=== PATIENT | female | born 1980 | race Asian ===

== ENCOUNTER 2016-12-26 00:45 | Inpatient (IN) | payer SELFPAY ==
[~2016-12-26] VITALS: Ht 158 cm; Wt 78.5 kg
[2016-12-26 02:00] VITALS: BP 115/63
[2016-12-26] MEDS ORDERED: LACTATED RINGERS 1,000 ML IV SCH (02:13)
[2016-12-26] MEDS ORDERED: OXYTOCIN 10 UNITS/ML VIAL IM SCH (02:15)
[2016-12-26] MEDS ORDERED: LACTATED RINGERS 500 ML IV SCH (02:15)
[2016-12-26] MEDS ORDERED: OXYTOCIN 20 UNITS/LR PREMIX 1,000 ML IV SCH (02:15)
[2016-12-26] MEDS ORDERED: ROPIVACAINE 0.2%/NS PREMIX 250 ML EPI ONE (02:19)
[2016-12-26] MEDS ORDERED: AMPICILLIN 500 MG CAP PO SCH (03:30)
[2016-12-26] MEDS: IBUPROFEN 800 MG TAB PO PRN ×2 (04:07→19:54)
[2016-12-26] MEDS ORDERED: INFLUENZA VIRUS VACCINE QUAD 0.5 ML SYR IMVAC SCH (04:50)
[2016-12-26] MEDS ORDERED: OXYTOCIN 20 UNITS/LR PREMIX 1,000 ML IV ONE (05:14)
[2016-12-26] MEDS ORDERED: OXYTOCIN 10 UNITS/ML VIAL ONE (05:14)
--- NOTE | 2016-12-26 08:14 | NUR ---
PATIENT HAS BEEN SCREENED AND CATEGORIZED LOW NUTRITION RISK. PATIENT WILL BE SEEN WITHIN 7 DAYS OF ADMISSION. 01/01/[address]
[2016-12-26] MEDS ORDERED: BISACODYL 5 MG TABEC PO SCH (21:00)
[2016-12-27] MEDS: IBUPROFEN 800 MG TAB PO PRN (05:11)
== END 2016-12-27 17:00 | disposition home or self-care (01) | DRG 775 ==
LOC: MFCC 00:45
PROVIDERS: ADMIT Obstetrics & Gynecology; ATTEND Obstetrics & Gynecology
PROC: 10E0XZZ Delivery of Products of Conception, External Approach (ICD-10-PCS; principal; 2016-12-26)
PROC: 0W8NXZZ Division of Female Perineum, External Approach (ICD-10-PCS; 2016-12-26)
PROC: 3E0234Z Introduction of Serum, Toxoid and Vaccine into Muscle, Percutaneous Approach (ICD-10-PCS; 2016-12-27)
DX: O69.81X0 Labor and delivery complicated by cord around neck, without compression, not applicable or unspecified (principal); Z3A.39 39 weeks gestation of pregnancy; Z37.0 Single live birth; Z23 Encounter for immunization